=== PATIENT | male | born 1950 | race Caucasian/White ===

== ENCOUNTER → 2022-12-27 14:01 | Outpatient (CLI) | payer SELFPAY | PROVIDERS: PCP Family Medicine; Visit Provider Family Medicine | DX: R35.0 Frequency of micturition (principal) | CPT/HCPCS: 87077; 87086; 87147; 87186 ==

== ENCOUNTER → 2023-01-01 09:41 | Outpatient (CLI) | payer SELFPAY | PROVIDERS: PCP Family Medicine; Visit Provider Family Medicine | DX: R31.0 Gross hematuria (principal); R39.89 Other symptoms and signs involving the genitourinary system | CPT/HCPCS: 87077; 87086; 87147; 87186 ==

== ENCOUNTER → 2023-01-23 12:14 | Outpatient (CLI) | payer MEDICARE, SELFPAY ==
--- NOTE | 2023-01-23 12:16 | DI.CT.S_ITS ---
PROCEDURE: CT ABDOMEN PELVIS W CON INDICATIONS: abdominal mass, GFR 52 (CR 1.44), rectal mass TECHNIQUE: After the administration of oral and intravenous contrast, axial sections were acquired from the lung bases to the pubic symphysis. Coronal and sagittal reformats were performed. For radiation dose reduction, the following was used: automated exposure control, adjustment of mA and/or kV according to patient size. COMPARISON:None. FINDINGS: Image quality: Excellent. Lung bases: 6 mm solid nodule, lateral right lower lobe (5/8). Heart: No significant findings. ABDOMEN: Liver: Unremarkable. Gallbladder: Unremarkable. Biliary ducts: Unremarkable. Pancreas: Unremarkable. Spleen: Unremarkable. Adrenal Glands: Unremarkable. Kidneys and Ureters: Moderate bilateral hydronephrosis. Delayed right-sided nephrogram. Moderate hydroureters. Stomach and Bowel: Stomach, small bowel loops, and colon are unremarkable. Peritoneum: No abnormal intraperitoneal fluid. No free air. Ventral Wall: No hernia. Abdominal Nodes: No retroperitoneal or mesenteric adenopathy by size criteria. Vessels: Aorta and inferior vena cava are normal in size. PELVIS: Pelvic Organs: Fungating bladder mass measuring 3.1 x 9.3 cm. Diffuse, irregular bladder wall thickening. Posterior bladder wall bulging, highly suspicious for invasion beyond the bladder wall (2/58). Bladder: Unremarkable. Pelvic Nodes: No enlarged lymph nodes. Miscellaneous: No inguinal hernias are seen. Bones: Unremarkable. No aggressive osseous abnormality. IMPRESSION: Fungating bladder mass measuring 3.1 x 9.3 cm. Diffuse, irregular bladder wall thickening. Posterior bladder wall bulging, highly suspicious for invasion beyond the bladder wall (2/58). No pelvic adenopathy by size criteria. Moderate bilateral hydronephroureter. 6 mm solid nodule in the right lower lobe, indeterminate in the setting of presumed malignancy. Dictated by: Parag Haile M.D. on 01/23/2023 at 14:58 Approved by: Parag Haile M.D. on 01/23/2023 at 15:03
[2023-01-23 12:51] LABS: Estimated Glomerular Filt Rate 41 mL/min (>60)
== END ==
PROVIDERS: Radiology Diagnostic Radiology; PCP Family Medicine; Referring Provider Family Medicine; Visit Provider Family Medicine
DX: N32.9 Bladder disorder, unspecified (principal); R91.1 Solitary pulmonary nodule; K62.89 Other specified diseases of anus and rectum; N13.30 Unspecified hydronephrosis; N39.0 Urinary tract infection, site not specified; R19.09 Other intra-abdominal and pelvic swelling, mass and lump; R21 Rash and other nonspecific skin eruption; R31.9 Hematuria, unspecified; D64.9 Anemia, unspecified
CPT/HCPCS: 36415; 74177; 82565; Q9967

== ENCOUNTER → 2023-02-20 13:28 | Outpatient (CLI) | payer MEDICARE, SELFPAY ==
[2023-02-20 14:15] LABS: Add Manual Diff / Slide Review NO; Basophils Absolute Auto 100 /uL (0-100); Basophils Percent Auto 0.8 % (0-2); Eosinophils Absolute Auto 100 /uL (0-450); Eosinophils Percent Auto 1.5 % (2-4); Hematocrit 23.8 % (41-53); Hemoglobin 7.4 g/dL (13.5-17.5); Lymphocytes Absolute Auto 1400 /uL (1100-4500); Lymphocytes Percent Auto 16.4 % (25-40); Mean Corpuscular HGB Conc 31.2 % (30-36); Mean Corpuscular Hemoglobin 19.9 PG (26-34); Mean Corpuscular Volume 63.8 fL (80-100); Monocytes Absolute Auto 800 /uL (0-900); Monocytes Percent Auto 9.7 % (3-14); Neutrophils Absolute Auto 6000 /uL (1500-7000); Neutrophils Percent Auto 71.6 % (50-75); Platelet Count 447 X10^3/uL (150-400); Red Blood Cell Count 3.73 X10^6/uL (4.5-5.9); Red Cell Distribution Width 23.7 % (11.6-14.8); White Blood Cell Count 8.3 X10^3/uL (4.5-11.0)
[2023-02-20 14:31] LABS: Alanine Aminotransferase 15 IU/L (<50); Albumin 3.7 g/dL (3.5-5.0); Alkaline Phosphatase 67 U/L (38-126); Aspartate Aminotransferase 19 IU/L (17-59); BUN Creatinine Ratio 21.2 (6-22); Bilirubin Total 0.2 mg/dL (0.2-1.3); Blood Urea Nitrogen 32 mg/dL (9-20); Calcium 8.6 mg/dL (8.4-10.2); Carbon Dioxide 25 mmol/L (22-32); Chloride 104 mmol/L (98-107); Cholesterol 203 mg/dL (140-199); Estimated Glomerular Filt Rate 49 mL/min (>60); Globulin 3.6 g/dL (1.7-4.1); Glucose 75 mg/dL (80-110); HEMOLYSIS < 15 (0-50); Potassium 5.2 mmol/L (3.4-5.1); Sodium 137 mmol/L (137-145); Total Protein 7.3 g/dL (6.3-8.2)
[2023-02-20 14:54] LABS: Microcytosis 2+
[2023-02-20 14:55] LABS: Hypochromasia 1+
[2023-02-20 15:01] LABS: TSH w/ Reflex to FT4 3.31 uIU/mL (0.47-4.68)
== END ==
PROVIDERS: PCP Family Medicine; Referring Provider Family Medicine; Visit Provider Family Medicine
DX: R79.89 Other specified abnormal findings of blood chemistry; E87.1 Hypo-osmolality and hyponatremia; R63.4 Abnormal weight loss; R93.89 Abnormal findings on diagnostic imaging of other specified body structures; D75.839 Thrombocytosis, unspecified; R19.00 Intra-abdominal and pelvic swelling, mass and lump, unspecified site; R31.9 Hematuria, unspecified; R94.4 Abnormal results of kidney function studies
CPT/HCPCS: 36415; 80053; 82465; 84443; 85025

== ENCOUNTER → 2023-03-12 14:01 | Outpatient (CLI) | payer MEDICARE, SELFPAY | PROVIDERS: PCP Family Medicine; Visit Provider Specialist | DX: N39.0 Urinary tract infection, site not specified (principal); D49.4 Neoplasm of unspecified behavior of bladder; R39.9 Unspecified symptoms and signs involving the genitourinary system; Z87.440 Personal history of urinary (tract) infections | CPT/HCPCS: 51798; 81002; 87077; 87086; 87147; 87186; 99215 ==

== ENCOUNTER → 2023-08-14 10:47 | Outpatient (CLI) | payer MEDICARE, SELFPAY ==
[2023-08-14 20:06] LABS: Bilirubin Urine UA 2+ (NEGATIVE); Glucose Urine UA NEGATIVE (Negative); Ketones Urine UA NEGATIVE (NEGATIVE); Leukocyte Esterase Urine UA 2+ (NEGATIVE); Nitrite Urine UA POSITIVE (Negative); Occult Blood Urine UA 3+ (Negative); Protein Urine UA 3+ (Negative); Specific Gravity Urine UA 1.015 (1.000-1.035)
[2023-08-14 20:14] LABS: Appearance Urine UA CLOUDY; Color Urine UA Red
[2023-08-14 20:18] LABS: Bacteria Urine Moderate (10-30); Culture Indicated Urine Specimen Cultured; Ictotest Urine Negative (Negative); RBC Urine 10-30/HPF (0-5/HPF); Squamous Epithelial Cell Urine 0-1 /HPF (0-5/HPF); WBC Urine 10-30/HPF (0-5/HPF)
== END ==
PROVIDERS: PCP Family Medicine; Visit Provider Naturopath
DX: N39.0 Urinary tract infection, site not specified (principal)
CPT/HCPCS: 81001; 87077; 87086; 87147; 87186

== ENCOUNTER → 2023-09-04 08:27 | Outpatient (CLI) | payer MEDICARE, SELFPAY ==
[2023-09-04 19:26] LABS: Appearance Urine UA TURBID; Bilirubin Urine UA NEGATIVE (NEGATIVE); Color Urine UA RED; Glucose Urine UA NEGATIVE (Negative); Ketones Urine UA NEGATIVE (NEGATIVE); Leukocyte Esterase Urine UA 3+ (NEGATIVE); Nitrite Urine UA POSITIVE (Negative); Occult Blood Urine UA 3+ (Negative); Protein Urine UA 2+ (Negative); Urobilinogen Urine UA 0.2 E.U./dL (0.2); pH Urine UA 6.5 (4.5-8.0)
[2023-09-04 20:13] LABS: Bacteria Urine Many (>30); Culture Indicated Urine Specimen Cultured; RBC Urine >100/HPF (0-5/HPF); Squamous Epithelial Cell Urine 0-1 /HPF (0-5/HPF); WBC Urine 30-100/HPF (0-5/HPF)
== END ==
PROVIDERS: PCP Family Medicine; Visit Provider Urology
DX: D49.4 Neoplasm of unspecified behavior of bladder (principal)
CPT/HCPCS: 81001; 87086

== ENCOUNTER → 2023-10-01 14:54 | Outpatient (CLI) | payer MEDICARE, SELFPAY | PROVIDERS: PCP Family Medicine; Visit Provider Physician Assistant | DX: R31.9 Hematuria, unspecified (principal) | CPT/HCPCS: 87077; 87086; 87147 ==

== ENCOUNTER 2023-10-01 17:21 | Emergency (ER) | payer MEDICARE, SELFPAY ==
[2023-10-01] VITALS (37 sets, daily range): BP systolic 119–161; BP diastolic 62–92; PULSE 63–92; RESP 13–22; TEMP 36.4–37; O2SAT 93–100; BMI 20.3
[2023-10-01 18:02] LABS: Bilirubin Urine UA NEGATIVE (NEGATIVE); Glucose Urine UA NEGATIVE (Negative); Ketones Urine UA NEGATIVE (NEGATIVE); Leukocyte Esterase Urine UA 2+ (NEGATIVE); Nitrite Urine UA POSITIVE (Negative); Occult Blood Urine UA 3+ (Negative); Protein Urine UA 3+ (Negative); pH Urine UA 6.5 (4.5-8.0)
[2023-10-01 18:02] LABS: INR 1.2 (0.9-1.3); Prothrombin Time 13.8 SECONDS (9.4-12.5)
[2023-10-01 18:05] LABS: Add Manual Diff / Slide Review NO; Basophils Absolute Auto 100 /uL (0-100); Basophils Percent Auto 0.7 % (0-2); Eosinophils Absolute Auto 200 /uL (0-450); Eosinophils Percent Auto 2.9 % (2-4); Lymphocytes Absolute Auto 1200 /uL (1100-4500); Lymphocytes Percent Auto 15.9 % (25-40); Mean Corpuscular HGB Conc 29.9 % (30-36); Mean Corpuscular Hemoglobin 19.4 PG (26-34); Mean Corpuscular Volume 64.9 fL (80-100); Monocytes Absolute Auto 600 /uL (0-900); Monocytes Percent Auto 8.2 % (3-14); Neutrophils Absolute Auto 5400 /uL (1500-7000); Neutrophils Percent Auto 72.3 % (50-75); PTT Partial Thromboplastin Tim 27 SECONDS (25.1-36.5); Platelet Count 556 X10^3/uL (150-400); Red Blood Cell Count 2.52 X10^6/uL (4.5-5.9); Red Cell Distribution Width 24.6 % (11.6-14.8); White Blood Cell Count 7.5 X10^3/uL (4.5-11.0)
[2023-10-01 18:06] LABS: Alanine Aminotransferase 8 IU/L (<50); Albumin 3.8 g/dL (3.5-5.0); Alkaline Phosphatase 69 U/L (38-126); Aspartate Aminotransferase 13 IU/L (17-59); BUN Creatinine Ratio 13.6 (6-22); Bilirubin Total 0.3 mg/dL (0.2-1.3); Blood Urea Nitrogen 36 mg/dL (9-20); Calcium 9.1 mg/dL (8.4-10.2); Carbon Dioxide 22 mmol/L (22-32); Chloride 104 mmol/L (98-107); Estimated Glomerular Filt Rate 25 mL/min (>60); Globulin 3.8 g/dL (1.7-4.1); Glucose 94 mg/dL (80-110); HEMOLYSIS < 15 (0-50); Potassium 4.7 mmol/L (3.4-5.1); Sodium 134 mmol/L (137-145); Total Protein 7.6 g/dL (6.3-8.2)
[2023-10-01 18:07] LABS: Hematocrit 16.3 % (41-53); Hemoglobin 4.9 g/dL (13.5-17.5)
[2023-10-01 18:08] LABS: Appearance Urine UA Turbid; Bacteria Urine Moderate (10-30); Color Urine UA Red; Culture Indicated Urine Specimen Cultured; RBC Urine >100/HPF (0-5/HPF); Squamous Epithelial Cell Urine 1-5 /HPF (0-5/HPF); WBC Urine 30-100/HPF (0-5/HPF)
[2023-10-01 18:21] LABS: Anisocytosis 3+; Ovalocytes 1+
[2023-10-01 18:22] LABS: Schistocytes 1+
[2023-10-01 18:23] LABS: Microcytosis 2+
--- NOTE | 2023-10-01 18:24 | ED_ITS ---
HPI - Recheck/Abnormal Lab/Rx <DO Inez Arnold Last Filed: 10/02/23 22:56> General Chief Complaint: Recheck/Abnormal Lab/Rx Stated Complaint: hematuria low H/H Time Seen by Provider: 10/01/23 17:44 Source: patient and EMS Mode of arrival: EMS History of Present Illness HPI narrative: Patient is a 73-year-old male. Was sent from his primary doctor's office for evaluation of hematuria and anemia. Patient states that really for the past several months he has had hematuria however it does seem to have worsened over the past couple days to the point where he has been passing clots. No blood in his stool. Earlier this year he was seen by Urology secondary to issues with hematuria and there was also concern about a bladder neoplasm. He followed up with Urology of the [facility] where they had discussions about surgery and chemotherapy. Patient states he did not want to go through with this so he never followed up with the urologist. He is also not followed up with Urology at this facility. He states that he did research on his own and thought that try to shrink the mass would be more appropriate. He saw another urologist at the [facility]. I am unsure as to what exactly came from this discussion with the specialists that this facility. He states that he was going to pursue ?metabolic? treatment to try to help shrink the mass. He is not having any chest pain but is very fatigued when he stands up and walks around. Not having any abdominal pain. He feels like he is emptying his bladder when he goes to the bathroom. Has never had a blood transfusion in the past. Takes no medications. No diagnosed medical problems. Related Data Previous Rx's Medication Instructions Recorded tamsulosin 0.4 mg capsule 0.4 mg PO BEDTIME #90 caps 03/12/23 nitrofurantoin macrocrystal 100 mg 100 mg PO BID 7 days #14 caps 10/01/23 capsule Allergies Allergy/AdvReac Type Severity Reaction Status Date / Time No Known Drug Allergies Allergy Verified 10/01/23 14:28 Review of Systems <DO Inez Arnold Last Filed: 10/02/23 22:56> Review of Systems ROS Unobtainable: All systems reviewed & are unremarkable except as noted in HPI and below Patient History <DO Inez Arnold Last Filed: 10/02/23 22:56> Medical History (Updated 10/02/23 @ 14:53 by Jerome Woodruff MD) Transfusion of blood during current hospitalisation Benign prostatic hyperplasia Bilateral hydronephrosis Gross hematuria History of UTI Lower urinary tract symptoms (LUTS) Bladder neoplasm Plantar warts Shoulder pain Measles Chicken pox Surgical History Anesthesia History of tonsillectomy Family History Father Cancer Diabetes mellitus Mother Cancer Hypertension Social History marital status: Smoking Status: Former smoker Type(s) of exercise: other frequency: 1-2 times per week Smoking Status: Former smoker alcohol intake frequency: 0-2 drinks per day Alcohol type: beer Substance Use Type: does not use Exam <Suhail Peters DO - Last Filed: 10/02/23 22:56> Initial Vital Signs Initial Vital Signs: Vital Signs Pulse Rate 73 10/01/23 17:27 Respiratory Rate 13 10/01/23 17:27 Const General: cooperative and comfortable HENMT Head: normal to inspection and normocephalic Eyes Other: Pale conjunctiva Resp Effort & Inspection: normal respiratory effort Cardio Rate: regular rate GI Inspection: normal to inspection Skin General: no rashes or lesions noted Other: Pale skin Neuro General: patient alert, patient awake, patient oriented x3 and moves all extremities <Mayelin Posey MD - Last Filed: 10/02/23 14:26> Initial Vital Signs Initial Vital Signs: Vital Signs Pulse Rate 73 10/01/23 17:27 Respiratory Rate 13 10/01/23 17:27 Course <Suhail Peters DO - Last Filed: 10/02/23 22:56> Orders Ordered: Discontinued Medications Acetaminophen (Acetaminophen 325 Mg Tablet) 650 mg PO Q6H PRN PRN Reason: Fever/Mild Pain (1-3) Tranexamic Acid 1,000 mg/ (Sodium Chloride) 100 mls @ 200 mls/hr IV NOW ONE Stop: 10/02/23 12:57 Last Infusion: 10/02/23 14:34 Dose: Infused Documented By: Admin: 10/02/23 13:19 Dose: 200 mls/hr Documented By: LINDA Ceftriaxone Sodium 1,000 mg/ (Sodium Chloride) 100 mls @ 200 mls/hr IV Q24H [facility] Stop: 10/08/23 12:46 Last Admin: 10/02/23 14:35 Dose: Not Given Documented By: LINDA Ceftriaxone Sodium 1,000 mg/ (Sodium Chloride) 100 mls @ 200 mls/hr IV Q24H [facility] Stop: 10/08/23 13:59 Last Infusion: 10/02/23 14:34 Dose: Infused Documented By: Admin: 10/02/23 13:24 Dose: 200 mls/hr Documented By: LINDA Lidocaine HCl (Lidocaine 2% (Glydo) 6 Ml Gel) 6 ml TOP NOW ONE Stop: 10/02/23 13:05 Last Admin: 10/02/23 13:19 Dose: 6 ml Documented By: LINDA Naloxone HCl (Naloxone 0.4 Mg/Ml Vial) 0.2 mg IV Q2MIN PRN PRN Reason: Opiate Reversal Ondansetron HCl (Ondansetron 4 Mg/2 Ml Inj) 4 mg IV NOW PRN PRN Reason: Nausea And Vomiting Ondansetron HCl (Ondansetron 4 Mg/2 Ml Inj) 4 mg IV Q4HR PRN PRN Reason: [place] Pantoprazole Sodium (Pantoprazole 40 Mg Vial) 80 mg IV NOW ONE Stop: 10/01/23 17:36 Last Admin: 10/01/23 17:45 Dose: Not Given Documented By: DAVID Tamsulosin HCl (Tamsulosin 0.4 Mg Capsule) 0.4 mg PO NOW ONE Stop: 10/02/23 12:29 Last Admin: 10/02/23 13:19 Dose: 0.4 mg Documented By: LINDA Vital Signs Vital signs: Vital Signs - 8 hr 10/02/23 06:30 10/02/23 06:45 10/02/23 07:00 Pulse Rate 71 72 75 Respiratory Rate 20 21 21 Blood Pressure Pulse Oximetry 97 97 100 10/02/23 07:15 10/02/23 07:30 10/02/23 07:45 Pulse Rate 71 86 76 Respiratory Rate 21 20 27 H Blood Pressure Pulse Oximetry 98 98 94 10/02/23 08:00 10/02/23 08:00 10/02/23 08:15 Pulse Rate 78 71 Respiratory Rate 19 19 Blood Pressure 156/72 H Pulse Oximetry 97 96 10/02/23 08:30 10/02/23 08:45 10/02/23 09:00 Pulse Rate 85 85 80 Respiratory Rate 23 22 19 Blood Pressure Pulse Oximetry 96 10/02/23 09:15 10/02/23 09:30 10/02/23 09:45 Pulse Rate 89 79 81 Respiratory Rate 21 21 16 Blood Pressure Pulse Oximetry 98 97 98 10/02/23 10:00 10/02/23 10:01 10/02/23 10:01 Pulse Rate 77 77 Respiratory Rate 21 25 H Blood Pressure 129/70 Pulse Oximetry 97 97 10/02/23 10:15 10/02/23 10:35 10/02/23 10:45 Pulse Rate 73 86 70 Respiratory Rate 21 20 21 Blood Pressure Pulse Oximetry 97 96 96 10/02/23 11:00 10/02/23 11:15 10/02/23 11:30 Pulse Rate 68 67 66 Respiratory Rate 22 20 20 Blood Pressure Pulse Oximetry 97 96 97 10/02/23 11:45 10/02/23 12:00 10/02/23 12:00 Pulse Rate 67 74 Respiratory Rate 22 18 Blood Pressure 137/82 Pulse Oximetry 97 <Mayelin Posey MD - Last Filed: 10/02/23 14:26> Orders Ordered: Discontinued Medications Acetaminophen (Acetaminophen 325 Mg Tablet) 650 mg PO Q6H PRN PRN Reason: Fever/Mild Pain (1-3) Tranexamic Acid 1,000 mg/ (Sodium Chloride) 100 mls @ 200 mls/hr IV NOW ONE Stop: 10/02/23 12:57 Last Infusion: 10/02/23 14:34 Dose: Infused Documented By: Admin: 10/02/23 13:19 Dose: 200 mls/hr Documented By: LINDA Ceftriaxone Sodium 1,000 mg/ (Sodium Chloride) 100 mls @ 200 mls/hr IV Q24H [facility] Stop: 10/08/23 12:46 Last Admin: 10/02/23 14:35 Dose: Not Given Documented By: LINDA Ceftriaxone Sodium 1,000 mg/ (Sodium Chloride) 100 mls @ 200 mls/hr IV Q24H [facility] Stop: 10/08/23 13:59 Last Infusion: 10/02/23 14:34 Dose: Infused Documented By: Admin: 10/02/23 13:24 Dose: 200 mls/hr Documented By: LINDA Lidocaine HCl (Lidocaine 2% (Glydo) 6 Ml Gel) 6 ml TOP NOW ONE Stop: 10/02/23 13:05 Last Admin: 10/02/23 13:19 Dose: 6 ml Documented By: LINDA Naloxone HCl (Naloxone 0.4 Mg/Ml Vial) 0.2 mg IV Q2MIN PRN PRN Reason: Opiate Reversal Ondansetron HCl (Ondansetron 4 Mg/2 Ml Inj) 4 mg IV NOW PRN PRN Reason: Nausea And Vomiting Ondansetron HCl (Ondansetron 4 Mg/2 Ml Inj) 4 mg IV Q4HR PRN PRN Reason: [place] Pantoprazole Sodium (Pantoprazole 40 Mg Vial) 80 mg IV NOW ONE Stop: 10/01/23 17:36 Last Admin: 10/01/23 17:45 Dose: Not Given Documented By: DAVID Tamsulosin HCl (Tamsulosin 0.4 Mg Capsule) 0.4 mg PO NOW ONE Stop: 10/02/23 12:29 Last Admin: 10/02/23 13:19 Dose: 0.4 mg Documented By: LINDA Vital Signs Vital signs: Vital Signs - 8 hr 10/02/23 06:30 10/02/23 06:45 10/02/23 07:00 Pulse Rate 71 72 75 Respiratory Rate 20 21 21 Blood Pressure Pulse Oximetry 97 97 100 10/02/23 07:15 10/02/23 07:30 10/02/23 07:45 Pulse Rate 71 86 76 Respiratory Rate 21 20 27 H Blood Pressure Pulse Oximetry 98 98 94 10/02/23 08:00 10/02/23 08:00 10/02/23 08:15 Pulse Rate 78 71 Respiratory Rate 19 19 Blood Pressure 156/72 H Pulse Oximetry 97 96 10/02/23 08:30 10/02/23 08:45 10/02/23 09:00 Pulse Rate 85 85 80 Respiratory Rate 23 22 19 Blood Pressure Pulse Oximetry 96 10/02/23 09:15 10/02/23 09:30 10/02/23 09:45 Pulse Rate 89 79 81 Respiratory Rate 21 21 16 Blood Pressure Pulse Oximetry 98 97 98 10/02/23 10:00 10/02/23 10:01 10/02/23 10:01 Pulse Rate 77 77 Respiratory Rate 21 25 H Blood Pressure 129/70 Pulse Oximetry 97 97 10/02/23 10:15 10/02/23 10:35 10/02/23 10:45 Pulse Rate 73 86 70 Respiratory Rate 21 20 21 Blood Pressure Pulse Oximetry 97 96 96 10/02/23 11:00 10/02/23 11:15 10/02/23 11:30 Pulse Rate 68 67 66 Respiratory Rate 22 20 20 Blood Pressure Pulse Oximetry 97 96 97 10/02/23 11:45 10/02/23 12:00 10/02/23 12:00 Pulse Rate 67 74 Respiratory Rate 22 18 Blood Pressure 137/82 Pulse Oximetry 97 MDM - Recheck/Abnormal Lab/Rx <Suhail Peters DO - Last Filed: 10/02/23 22:56> Medical Records Attestation: I reviewed the patient's medical records. Lab Data Attestation: I reviewed the patient's lab results. 10/02/23 06:45 10/01/23 17:30 Labs: Lab Results 10/01/23 10/01/23 10/01/23 Range/Units 17:30 17:40 19:23 WBC 7.5 (4.5-11.0) X10^3/uL RBC 2.52 L (4.5-5.9) X10^6/uL Hgb 4.9 L* (13.5-17.5) g/dL Hct 16.3 L* (41-53) % MCV 64.9 L (80-100) fL MCH 19.4 L (26-34) PG MCHC 29.9 L (30-36) % RDW 24.6 H (11.6-14.8) % Plt Count 556 H (150-400) X10^3/uL Neut % (Auto) 72.3 (50-75) % Lymph % (Auto) 15.9 L (25-40) % [place] % (Auto) 8.2 (3-14) % Eos % (Auto) 2.9 (2-4) % Baso % (Auto) 0.7 (0-2) % Neut # (Auto) 5400 (6567-0204) /uL Lymph # (Auto) 1200 (3219-0662) /uL [place] # (Auto) 600 (0-900) /uL Eos # (Auto) 200 (0-450) /uL Baso # (Auto) 100 (0-100) /uL RBC Morphology See below Anisocytosis 3+ H Microcytosis 2+ H Ovalocytes 1+ H Schistocytes 1+ H PT 13.8 H (9.4-12.5) SECONDS INR 1.2 (0.9-1.3) APTT 27 (25.1-36.5) SECONDS Sodium 134 L (137-145) mmol/L Potassium 4.7 (3.4-5.1) mmol/L Chloride 104 (98-107) mmol/L Carbon Dioxide 22 (22-32) mmol/L BUN 36 H (9-20) mg/dL Creatinine 2.64 H (0.66-1.25) mg/dL Estimated GFR 25 L (>60) mL/min BUN/Creatinine Ratio 13.6 (6-22) Glucose 94 (80-110) mg/dL Calcium 9.1 (8.4-10.2) mg/dL Total Bilirubin 0.3 (0.2-1.3) mg/dL AST 13 L (17-59) IU/L ALT 8 (<50) IU/L Alkaline Phosphatase 69 (38-126) U/L Total Protein 7.6 (6.3-8.2) g/dL Albumin 3.8 (3.5-5.0) g/dL Globulin 3.8 (1.7-4.1) g/dL Albumin/Globulin Ratio 1.0 (1.0-2.8) Urine Color Red Urine Appearance Turbid Urine pH 6.5 (4.5-8.0) Ur Specific [place] 1.020 (1.000-1.035) Urine Protein 3+ H (Negative) Urine Glucose (UA) Negative (Negative) g/dL Urine Ketones Negative (NEGATIVE) Urine Occult Blood 3+ H (Negative) Urine Nitrate Positive H (Negative) Urine Bilirubin Negative (NEGATIVE) Urine Urobilinogen 1.0 (0.2) E.U./dL Ur Leukocyte Esterase 2+ H (NEGATIVE) Urine RBC >100/hpf H (0-5/HPF) Urine WBC 30-100/hpf H (0-5/HPF) Ur Squamous Epith Cells 1-5 /hpf (0-5/HPF) Urine Bacteria Moderate (10-30) H (None) Ur Culture Indicated? Specimen cultured Micro UA Comment Ur Random Sodium 69 (30-90) mmol/L Urine Creatinine 68.7 mg/dL SARS-CoV-2 (PCR) (Negative) Blood Type A Positive Antibody Screen Negative Crossmatch See Detail 10/01/23 10/01/23 10/02/23 Range/Units 22:03 23:45 02:40 WBC (4.5-11.0) X10^3/uL RBC (4.5-5.9) X10^6/uL Hgb 6.7 L* 7.9 L (13.5-17.5) g/dL Hct 21.1 L 24.7 L (41-53) % MCV (80-100) fL MCH (26-34) PG MCHC (30-36) % RDW (11.6-14.8) % Plt Count (150-400) X10^3/uL Neut % (Auto) (50-75) % Lymph % (Auto) (25-40) % [place] % (Auto) (3-14) % Eos % (Auto) (2-4) % Baso % (Auto) (0-2) % Neut # (Auto) (8884-5677) /uL Lymph # (Auto) (8314-1409) /uL [place] # (Auto) (0-900) /uL Eos # (Auto) (0-450) /uL Baso # (Auto) (0-100) /uL RBC Morphology Anisocytosis Microcytosis Ovalocytes Schistocytes PT (9.4-12.5) SECONDS INR (0.9-1.3) APTT (25.1-36.5) SECONDS Sodium (137-145) mmol/L Potassium (3.4-5.1) mmol/L Chloride (98-107) mmol/L Carbon Dioxide (22-32) mmol/L BUN (9-20) mg/dL Creatinine (0.66-1.25) mg/dL Estimated GFR (>60) mL/min BUN/Creatinine Ratio (6-22) Glucose (80-110) mg/dL Calcium (8.4-10.2) mg/dL Total Bilirubin (0.2-1.3) mg/dL AST (17-59) IU/L ALT (<50) IU/L Alkaline Phosphatase (38-126) U/L Total Protein (6.3-8.2) g/dL Albumin (3.5-5.0) g/dL Globulin (1.7-4.1) g/dL Albumin/Globulin Ratio (1.0-2.8) Urine Color Urine Appearance Urine pH (4.5-8.0) Ur Specific [place] (1.000-1.035) Urine Protein (Negative) Urine Glucose (UA) (Negative) g/dL Urine Ketones (NEGATIVE) Urine Occult Blood (Negative) Urine Nitrate (Negative) Urine Bilirubin (NEGATIVE) Urine Urobilinogen (0.2) E.U./dL Ur Leukocyte Esterase (NEGATIVE) Urine RBC (0-5/HPF) Urine WBC (0-5/HPF) Ur Squamous Epith Cells (0-5/HPF) Urine Bacteria (None) Ur Culture Indicated? Micro UA Comment Ur Random Sodium (30-90) mmol/L Urine Creatinine mg/dL SARS-CoV-2 (PCR) Negative (Negative) Blood Type Antibody Screen Crossmatch 10/02/23 Range/Units 06:45 WBC (4.5-11.0) X10^3/uL RBC (4.5-5.9) X10^6/uL Hgb 7.7 L (13.5-17.5) g/dL Hct 23.8 L (41-53) % MCV (80-100) fL MCH (26-34) PG MCHC (30-36) % RDW (11.6-14.8) % Plt Count (150-400) X10^3/uL Neut % (Auto) (50-75) % Lymph % (Auto) (25-40) % [place] % (Auto) (3-14) % Eos % (Auto) (2-4) % Baso % (Auto) (0-2) % Neut # (Auto) (2635-0841) /uL Lymph # (Auto) (8046-8096) /uL [place] # (Auto) (0-900) /uL Eos # (Auto) (0-450) /uL Baso # (Auto) (0-100) /uL RBC Morphology Anisocytosis Microcytosis Ovalocytes Schistocytes PT (9.4-12.5) SECONDS INR (0.9-1.3) APTT (25.1-36.5) SECONDS Sodium (137-145) mmol/L Potassium (3.4-5.1) mmol/L Chloride (98-107) mmol/L Carbon Dioxide (22-32) mmol/L BUN (9-20) mg/dL Creatinine (0.66-1.25) mg/dL Estimated GFR (>60) mL/min BUN/Creatinine Ratio (6-22) Glucose (80-110) mg/dL Calcium (8.4-10.2) mg/dL Total Bilirubin (0.2-1.3) mg/dL AST (17-59) IU/L ALT (<50) IU/L Alkaline Phosphatase (38-126) U/L Total Protein (6.3-8.2) g/dL Albumin (3.5-5.0) g/dL Globulin (1.7-4.1) g/dL Albumin/Globulin Ratio (1.0-2.8) Urine Color Urine Appearance Urine pH (4.5-8.0) Ur Specific [place] (1.000-1.035) Urine Protein (Negative) Urine Glucose (UA) (Negative) g/dL Urine Ketones (NEGATIVE) Urine Occult Blood (Negative) Urine Nitrate (Negative) Urine Bilirubin (NEGATIVE) Urine Urobilinogen (0.2) E.U./dL Ur Leukocyte Esterase (NEGATIVE) Urine RBC (0-5/HPF) Urine WBC (0-5/HPF) Ur Squamous Epith Cells (0-5/HPF) Urine Bacteria (None) Ur Culture Indicated? Micro UA Comment Ur Random Sodium (30-90) mmol/L Urine Creatinine mg/dL SARS-CoV-2 (PCR) (Negative) Blood Type Antibody Screen Crossmatch Imaging Data CT scan - abdomen/pelvis: Radiologist's Impression: PROCEDURE: CT ABDOMEN PELVIS WO CON INDICATIONS: Hematuria, known bladder mass, TECHNIQUE: Noncontrast 5 mm thick sections acquired from the diaphragms to the symphysis. 5 mm coronal and sagittal reformats were then performed. For radiation dose reduction, the following was used: automated exposure control, adjustment of mA and/or kV according to patient size. COMPARISON: [facility], CT, CT ABDOMEN PELVIS W CON, 01/23/2023, 13:58. FINDINGS: Image quality: Diagnostic ABDOMEN: Lung bases: Lung bases are clear. Heart size is normal. Solid organs: Liver: Liver is normal in size. Gallbladder: Unremarkable. Pancreas: Pancreas is normal in contours. Spleen: Spleen is normal in size. Adrenal Glands: Stable appearance of the adrenal glands. Kidneys/Ureters: Moderate bilateral hydronephrosis stable to slightly more prominent compared to the prior study. There is moderate right hydroureter. Tiny punctate left renal stone identified. Persistent left hydroureter. A few punctate densities noted in the distal left ureter likely representing ureteral stones. Peritoneum and bowel: Unenhanced bowel loops demonstrate normal wall thickness and caliber. No free fluid or air. No evidence for obstruction. Moderate fecal material seen in the ascending colon and transverse colon. Nodes and vessels: No retroperitoneal or mesenteric adenopathy by size criteria. Aorta and inferior vena cava are normal in caliber. Scattered atherosclerosis. Miscellaneous: No ventral hernias. PELVIS: Genitourinary: Redemonstration of large, heterogeneous urinary bladder mass with associated diffusely, irregular bladder wall thickening. Largest dimension measures approximately 9.5 cm in AP dimension. This is similar compared to the prior study accounting for differences in technique. Small punctate densities within the urinary bladder may represent small stones. No significant perivesicular stranding seen. Miscellaneous: No inguinal hernias or adenopathy. Bones: No suspicious bony lesions. No acute vertebral body compression fractures. Multilevel spondylosis. IMPRESSION: 1. Redemonstration of large, heterogeneous urinary bladder wall mass with associated diffusely irregular urinary bladder wall thickening. There is stable to slight interval worsening moderate bilateral hydronephrosis. 2. Tiny punctate left nephrolith with a few smaller punctate left ureteral stones. Suspected small urinary bladder stones. 3. Moderate amount of fecal material noted within the ascending colon and transverse colon. No evidence for small bowel obstruction. Dictated by: Stiven Cr M.D. on 10/01/2023 at 20:00 Approved by: Stiven Cr M.D. on 10/01/2023 at 20:11 ECG Data Attestation: I personally reviewed and interpreted this ECG as follows: Interpretation: Sinus rhythm Ventricular rate is 68 Normal axis Normal QRS Normal QTC Nonspecific ST T wave changes MDM Narrative Medical decision making narrative: Patient has had persistent hematuria for the past several months. He is a known bladder mass. Has been seen by Urology the [facility]. Has decided not to pursue surgical intervention because he wanted to explore other opportunities to try to shrink the mass before any surgery. Hematuria worsened over the past week or so. Has not been tachycardic nor hypotensive however was pale. Was significantly anemic. Source of bleeding was from the urine. He is emptying his bladder when he urinates. Also has acute kidney injury. FENa is 2% which is indicative of a intrinsic renal pathology. Discuss the risks and benefits of a blood transfusion and the patient consented. Had good response to 2 units so a 3rd unit was administered. Patient has no signs of fluid overload. I did discuss the case with Dr. Thomas urologist on-call at our facility who evaluated the patient earlier this year. Dr. Thomas states that there is minimal that we can offer him here at this facility and that he would need transferred to larger facility that has a multidisciplinary approach to his most likely diagnosis of bladder cancer. Had a long discussion with the patient regarding his goals of care. Patient states that he is open for a transfer to discuss treatment options. Discuss the case with urology at the [facility] who accepts the patient for transfer. Unfortunately no bed availability overnight. Patient is aware this. We will continue to monitor until disposition can be met. Care turned over to Dr. Posey to continue to observe until disposition can be met. <Mayelin Posey MD - Last Filed: 10/02/23 14:26> Lab Data Labs: Lab Results 10/01/23 10/01/23 10/01/23 Range/Units 17:30 17:40 19:23 WBC 7.5 (4.5-11.0) X10^3/uL RBC 2.52 L (4.5-5.9) X10^6/uL Hgb 4.9 L* (13.5-17.5) g/dL Hct 16.3 L* (41-53) % MCV 64.9 L (80-100) fL MCH 19.4 L (26-34) PG MCHC 29.9 L (30-36) % RDW 24.6 H (11.6-14.8) % Plt Count 556 H (150-400) X10^3/uL Neut % (Auto) 72.3 (50-75) % Lymph % (Auto) 15.9 L (25-40) % [place] % (Auto) 8.2 (3-14) % Eos % (Auto) 2.9 (2-4) % Baso % (Auto) 0.7 (0-2) % Neut # (Auto) 5400 (8003-1891) /uL Lymph # (Auto) 1200 (7900-5290) /uL [place] # (Auto) 600 (0-900) /uL Eos # (Auto) 200 (0-450) /uL Baso # (Auto) 100 (0-100) /uL RBC Morphology See below Anisocytosis 3+ H Microcytosis 2+ H Ovalocytes 1+ H Schistocytes 1+ H PT 13.8 H (9.4-12.5) SECONDS INR 1.2 (0.9-1.3) APTT 27 (25.1-36.5) SECONDS Sodium 134 L (137-145) mmol/L Potassium 4.7 (3.4-5.1) mmol/L Chloride 104 (98-107) mmol/L Carbon Dioxide 22 (22-32) mmol/L BUN 36 H (9-20) mg/dL Creatinine 2.64 H (0.66-1.25) mg/dL Estimated GFR 25 L (>60) mL/min BUN/Creatinine Ratio 13.6 (6-22) Glucose 94 (80-110) mg/dL Calcium 9.1 (8.4-10.2) mg/dL Total Bilirubin 0.3 (0.2-1.3) mg/dL AST 13 L (17-59) IU/L ALT 8 (<50) IU/L Alkaline Phosphatase 69 (38-126) U/L Total Protein 7.6 (6.3-8.2) g/dL Albumin 3.8 (3.5-5.0) g/dL Globulin 3.8 (1.7-4.1) g/dL Albumin/Globulin Ratio 1.0 (1.0-2.8) Urine Color Red Urine Appearance Turbid Urine pH 6.5 (4.5-8.0) Ur Specific [place] 1.020 (1.000-1.035) Urine Protein 3+ H (Negative) Urine Glucose (UA) Negative (Negative) g/dL Urine Ketones Negative (NEGATIVE) Urine Occult Blood 3+ H (Negative) Urine Nitrate Positive H (Negative) Urine Bilirubin Negative (NEGATIVE) Urine Urobilinogen 1.0 (0.2) E.U./dL Ur Leukocyte Esterase 2+ H (NEGATIVE) Urine RBC >100/hpf H (0-5/HPF) Urine WBC 30-100/hpf H (0-5/HPF) Ur Squamous Epith Cells 1-5 /hpf (0-5/HPF) Urine Bacteria Moderate (10-30) H (None) Ur Culture Indicated? Specimen cultured Micro UA Comment Ur Random Sodium 69 (30-90) mmol/L Urine Creatinine 68.7 mg/dL SARS-CoV-2 (PCR) (Negative) Blood Type A Positive Antibody Screen Negative Crossmatch See Detail 10/01/23 10/01/23 10/02/23 Range/Units 22:03 23:45 02:40 WBC (4.5-11.0) X10^3/uL RBC (4.5-5.9) X10^6/uL Hgb 6.7 L* 7.9 L (13.5-17.5) g/dL Hct 21.1 L 24.7 L (41-53) % MCV (80-100) fL MCH (26-34) PG MCHC (30-36) % RDW (11.6-14.8) % Plt Count (150-400) X10^3/uL Neut % (Auto) (50-75) % Lymph % (Auto) (25-40) % [place] % (Auto) (3-14) % Eos % (Auto) (2-4) % Baso % (Auto) (0-2) % Neut # (Auto) (6660-8520) /uL Lymph # (Auto) (0273-7776) /uL [place] # (Auto) (0-900) /uL Eos # (Auto) (0-450) /uL Baso # (Auto) (0-100) /uL RBC Morphology Anisocytosis Microcytosis Ovalocytes Schistocytes PT (9.4-12.5) SECONDS INR (0.9-1.3) APTT (25.1-36.5) SECONDS Sodium (137-145) mmol/L Potassium (3.4-5.1) mmol/L Chloride (98-107) mmol/L Carbon Dioxide (22-32) mmol/L BUN (9-20) mg/dL Creatinine (0.66-1.25) mg/dL Estimated GFR (>60) mL/min BUN/Creatinine Ratio (6-22) Glucose (80-110) mg/dL Calcium (8.4-10.2) mg/dL Total Bilirubin (0.2-1.3) mg/dL AST (17-59) IU/L ALT (<50) IU/L Alkaline Phosphatase (38-126) U/L Total Protein (6.3-8.2) g/dL Albumin (3.5-5.0) g/dL Globulin (1.7-4.1) g/dL Albumin/Globulin Ratio (1.0-2.8) Urine Color Urine Appearance Urine pH (4.5-8.0) Ur Specific [place] (1.000-1.035) Urine Protein (Negative) Urine Glucose (UA) (Negative) g/dL Urine Ketones (NEGATIVE) Urine Occult Blood (Negative) Urine Nitrate (Negative) Urine Bilirubin (NEGATIVE) Urine Urobilinogen (0.2) E.U./dL Ur Leukocyte Esterase (NEGATIVE) Urine RBC (0-5/HPF) Urine WBC (0-5/HPF) Ur Squamous Epith Cells (0-5/HPF) Urine Bacteria (None) Ur Culture Indicated? Micro UA Comment Ur Random Sodium (30-90) mmol/L Urine Creatinine mg/dL SARS-CoV-2 (PCR) Negative (Negative) Blood Type Antibody Screen Crossmatch 10/02/23 Range/Units 06:45 WBC (4.5-11.0) X10^3/uL RBC (4.5-5.9) X10^6/uL Hgb 7.7 L (13.5-17.5) g/dL Hct 23.8 L (41-53) % MCV (80-100) fL MCH (26-34) PG MCHC (30-36) % RDW (11.6-14.8) % Plt Count (150-400) X10^3/uL Neut % (Auto) (50-75) % Lymph % (Auto) (25-40) % [place] % (Auto) (3-14) % Eos % (Auto) (2-4) % Baso % (Auto) (0-2) % Neut # (Auto) (1635-9560) /uL Lymph # (Auto) (8656-1836) /uL [place] # (Auto) (0-900) /uL Eos # (Auto) (0-450) /uL Baso # (Auto) (0-100) /uL RBC Morphology Anisocytosis Microcytosis Ovalocytes Schistocytes PT (9.4-12.5) SECONDS INR (0.9-1.3) APTT (25.1-36.5) SECONDS Sodium (137-145) mmol/L Potassium (3.4-5.1) mmol/L Chloride (98-107) mmol/L Carbon Dioxide (22-32) mmol/L BUN (9-20) mg/dL Creatinine (0.66-1.25) mg/dL Estimated GFR (>60) mL/min BUN/Creatinine Ratio (6-22) Glucose (80-110) mg/dL Calcium (8.4-10.2) mg/dL Total Bilirubin (0.2-1.3) mg/dL AST (17-59) IU/L ALT (<50) IU/L Alkaline Phosphatase (38-126) U/L Total Protein (6.3-8.2) g/dL Albumin (3.5-5.0) g/dL Globulin (1.7-4.1) g/dL Albumin/Globulin Ratio (1.0-2.8) Urine Color Urine Appearance Urine pH (4.5-8.0) Ur Specific [place] (1.000-1.035) Urine Protein (Negative) Urine Glucose (UA) (Negative) g/dL Urine Ketones (NEGATIVE) Urine Occult Blood (Negative) Urine Nitrate (Negative) Urine Bilirubin (NEGATIVE) Urine Urobilinogen (0.2) E.U./dL Ur Leukocyte Esterase (NEGATIVE) Urine RBC (0-5/HPF) Urine WBC (0-5/HPF) Ur Squamous Epith Cells (0-5/HPF) Urine Bacteria (None) Ur Culture Indicated? Micro UA Comment Ur Random Sodium (30-90) mmol/L Urine Creatinine mg/dL SARS-CoV-2 (PCR) (Negative) Blood Type Antibody Screen Crossmatch [facility] Narrative Medical decision making narrative: Patient has had persistent hematuria for the past several months. He is a known bladder mass. Has been seen by Urology the [facility]. Has decided not to pursue surgical intervention because he wanted to explore other opportunities to try to shrink the mass before any surgery. Hematuria worsened over the past week or so. Has not been tachycardic nor hypotensive however was pale. Was significantly anemic. Source of bleeding was from the urine. He is emptying his bladder when he urinates. Also has acute kidney injury. FENa is 2% which is indicative of a intrinsic renal pathology. Discuss the risks and benefits of a blood transfusion and the patient consented. Had good response to 2 units so a 3rd unit was administered. Patient has no signs of fluid overload. I did discuss the case with Dr. Thomas urologist on-call at our facility who evaluated the patient earlier this year. Dr. Thomas states that there is minimal that we can offer him here at this facility and that he would need transferred to larger facility that has a multidisciplinary approach to his most likely diagnosis of bladder cancer. Had a long discussion with the patient regarding his goals of care. Patient states that he is open for a transfer to discuss treatment options. Discuss the case with urology at the [facility] who accepts the patient for transfer. Unfortunately no bed availability overnight. Patient is aware this. We will continue to monitor until disposition can be met. Care turned over to Dr. Posey to continue to observe until disposition can be met. 9am care is assumed, chart is reviewed patient is independently examined. Phone call to [facility] who has, theoretically, accepted the patient. This morning they are telling us it will be a number of days before the patient may actually have a bed. Findings reviewed with the patient. He continues to have gross hematuria. After 3 units of blood H&H was as high as 7.9/24.7 and over a 4 hour. (no fluids or other IV medications given) drifted down to 7.7/23.8. Patient states that he does have an appointment with a urologist at [facility] in November for a cystoscopy. Given the extended wait to get the [facility] will called in to [facility] and see if they may be a will and willing to take this patient in transfer. Patient is amenable to that With the mild hydronephrosis, a postvoid residual was done. Less than 10 cc were appreciated. 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 He still remains under the impression that his hematuria is secondary to urinary tract infection despite 2 courses of antibiotics. Urine micro culture from September 04 shows 3 or more colony types of mixed gus suggesting an absence of urinary tract infection 1150am [facility] does not have beds available for a number of days. Discussion with [facility], trying to get hold of Urology regarding recommendations if the wait for a bed is going to be a number of days. Patient has been updated 1204 transfer oaklyn MD [place] Urologic oncologist. Her recommendation is to place a large, 24 Eritrean of possible three-way Arizmendi catheter with manual irrigation for at least 500 cc and then continuous bladder irrigation to see if we can get bleeding too slow. We will work on getting him moved up the list for admission with anticipation that he will go to the [facility]. We will keep him in the emergency department until he is able to be transferred. Will discuss consultation with hospitalist service. Dr Javier, will consult in the ED as we await bed availability at the [facility] [address] Dr[address] Woodruff, urology in the ED to offer assistance. Agrees with transfers urgently is were able to arrange. He was able to assist with obtaining Twenty- four Eritrean hematuria catheter [address] to begin 500 cc of sterile water irrigation to try to break up any clots that may be present. Followed with sterile saline continuous infusion. 200pm [facility] has made arrangements for a bed. [facility] transport is being arranged 225pm Dr. Douglas, urology attempted Arizmendi catheter placement after nursing staff was unsuccessful. He was unable to place the catheter. His concern was tumor within the prostate. Transport is currently available. Patient is able to void and he will be transferred without catheter in place. Discharge Plan Departure Patient Disposition: [facility] Clinical Impression: Bladder mass Hematuria Qualifiers: Hematuria type: gross Qualified Code(s): R31.0 - Gross hematuria Anemia Qualifiers: Anemia type: unspecified type Qualified Code(s): D64.9 - Anemia, unspecified Acute kidney failure Qualifiers: Acute renal failure type: unspecified Qualified Code(s): N17.9 - Acute kidney failure, unspecified Prescriptions: No Action nitrofurantoin macrocrystal 100 mg capsule 100 mg PO BID 7 Days Qty: 14 0RF Rx Instructions: must administer with a meal/food tamsulosin 0.4 mg capsule 0.4 mg PO BEDTIME Qty: 90 3RF Referrals: Mague Priest MD [Primary Care Provider] -
--- NOTE | 2023-10-01 18:47 | DI.CT.S_ITS ---
PROCEDURE: CT ABDOMEN PELVIS WO CON INDICATIONS: Hematuria, known bladder mass, TECHNIQUE: Noncontrast 5 mm thick sections acquired from the diaphragms to the symphysis. 5 mm coronal and sagittal reformats were then performed. For radiation dose reduction, the following was used: automated exposure control, adjustment of mA and/or kV according to patient size. COMPARISON: [facility], CT, CT ABDOMEN PELVIS W CON, 01/23/2023, 13:58. FINDINGS: Image quality: Diagnostic ABDOMEN: Lung bases: Lung bases are clear. Heart size is normal. Solid organs: Liver: Liver is normal in size. Gallbladder: Unremarkable. Pancreas: Pancreas is normal in contours. Spleen: Spleen is normal in size. Adrenal Glands: Stable appearance of the adrenal glands. Kidneys/Ureters: Moderate bilateral hydronephrosis stable to slightly more prominent compared to the prior study. There is moderate right hydroureter. Tiny punctate left renal stone identified. Persistent left hydroureter. A few punctate densities noted in the distal left ureter likely representing ureteral stones. Peritoneum and bowel: Unenhanced bowel loops demonstrate normal wall thickness and caliber. No free fluid or air. No evidence for obstruction. Moderate fecal material seen in the ascending colon and transverse colon. Nodes and vessels: No retroperitoneal or mesenteric adenopathy by size criteria. Aorta and inferior vena cava are normal in caliber. Scattered atherosclerosis. Miscellaneous: No ventral hernias. PELVIS: Genitourinary: Redemonstration of large, heterogeneous urinary bladder mass with associated diffusely, irregular bladder wall thickening. Largest dimension measures approximately 9.5 cm in AP dimension. This is similar compared to the prior study accounting for differences in technique. Small punctate densities within the urinary bladder may represent small stones. No significant perivesicular stranding seen. Miscellaneous: No inguinal hernias or adenopathy. Bones: No suspicious bony lesions. No acute vertebral body compression fractures. Multilevel spondylosis. IMPRESSION: 1. Redemonstration of large, heterogeneous urinary bladder wall mass with associated diffusely irregular urinary bladder wall thickening. There is stable to slight interval worsening moderate bilateral hydronephrosis. 2. Tiny punctate left nephrolith with a few smaller punctate left ureteral stones. Suspected small urinary bladder stones. 3. Moderate amount of fecal material noted within the ascending colon and transverse colon. No evidence for small bowel obstruction. Dictated by: Stiven Cr M.D. on 10/01/2023 at 20:00 Approved by: Stiven Cr M.D. on 10/01/2023 at 20:11
[2023-10-01 19:40] LABS: Creatinine Urine Random 68.7 mg/dL; Sodium Urine Random 69 mmol/L (30-90)
[2023-10-01 23:03] LABS: COVID19 -Nasal RAPID Negative (Negative)
[2023-10-02] VITALS (72 sets, daily range): BP systolic 120–203; BP diastolic 56–108; PULSE 66–101; RESP 16–33; TEMP 36.6–36.9; O2SAT 94–100
[2023-10-02 00:01] LABS: Hematocrit 21.1 % (41-53)
[2023-10-02 00:03] LABS: Hemoglobin 6.7 g/dL (13.5-17.5)
--- NOTE | 2023-10-02 01:30 | PC.NURSE ---
Pt continues to have Red urine Denies any pain.
[2023-10-02 03:19] LABS: Hematocrit 24.7 % (41-53); Hemoglobin 7.9 g/dL (13.5-17.5)
[2023-10-02 07:01] LABS: Hematocrit 23.8 % (41-53); Hemoglobin 7.7 g/dL (13.5-17.5)
--- NOTE | 2023-10-02 07:59 | PC.NURSE ---
SENIOR ELECTRICAL DESIGNER Note - Patient accepted at by Dr. Brooks overnight. Called the transfer center for an update about bed status, talked with Rody; no bed information available. Told to call back in 30-45 minutes
--- NOTE | 2023-10-02 08:49 | PC.NURSE ---
KEYBOARD TEACHER Note - Called Transfer Center back, spoke with Rody again. was told no bed update available and no estimated time available for when a bed would be assigned.
--- NOTE | 2023-10-02 09:12 | PC.NURSE ---
pt emptied bladder, has known bladder mass getting readings of 137mL and 7mL. pt just emptied bladder and 7mL seems most appropriate. MD crane
--- NOTE | 2023-10-02 09:30 | PC.NURSE ---
FREIGHT TEAM ASSOCIATE Note - Called [facility] transfer center; talked with Arleen. Reported very little movement the past three days, multi-day wait list. Patient added to wait list.
[2023-10-02] MEDS: TAMSULOSIN 0.4 MG CAPSULE PO (13:19)
[2023-10-02] MEDS: TRANEXAMIC ACID 1,000 MG in SODIUM CHLORIDE 0.9% 100 ML 200 MG IV (13:19)
[2023-10-02] MEDS: LIDOCAINE 2% (GLYDO) 6 ML GEL TOP (13:19)
[2023-10-02] MEDS: cefTRIAXone 1,000 MG in SODIUM CHLORIDE 0.9% 100 ML 200 MG IV (13:24)
--- NOTE | 2023-10-02 14:15 | PC.NURSE ---
This RN with Dr. Woodruff at bedside placed a 24 Bulgarian hematuria catheter. the catheter would drain when the balloon was not inflated. the balloon required 30mls to inflate. Dr. Woodruff and this RN attempted to start the CBI while the balloon was inflated but the CBI bag of NS would not drain into the bladder. Dr. Woodruff attempted to manually irrigate with sterile water and the catheter would not drain. Dr. Woodruff deflated the balloon and the catheter would drain. Dr. Woodruff attempted to use a guide wire to re insert the catheter with no success. The patient was ablel to void on his own so Dr. Woodruff recommended for patient to be transferred without a catheter. patient tolerated well.
--- NOTE | 2023-10-02 14:41 | PM.CN ---
History of Present Illness Consult details Date Patient Seen: 10/02/23 Time Patient Seen: 14:41 Chief complaint: hematuria low H/H Reason for consult: Known bladder cancer hematuria low H&H requiring transfusion Requesting provider: Walter Javier Narrative: Was asked to see this 73 year old male with known bladder cancer who since February had had cystoprostatectomy and other therapies recommended by at least 3 different urologist 1 here wanted to [facility] and 1 at [facility]. The patient decided that he would go down other pass and was under the care of in nature a path to try ?shrink the tumor?. He I believe yesterday presented to his primary care provider with complaints of lightheadedness feeling pale and was found to be quite anemic. Patient had been having bleeding and presented here to the emergency department where was found to have an H&H of 4.9 and 16.3. He was transfused [address] Thomas who is on-call for Urology and seen the patient before was consulted and recommended as he had before that the patient needed urgent transfer to a ?higher level of care?. At this point he has been accepted by [facility] urologic oncology and is awaiting transfer. Was called because of the hematuria and to help manage with this. The oncologist at the [facility] had recommended a 34 Malian three-way catheter and an irrigation program and I was asked to assist with this. As it turned out during our interaction the delay in transfer apparently evaporated and the patient is now being transferred to the [facility]. The ambulance having arrived. The nursing staff had attempted to pass a 34 Malian hematuria catheter per recommendation and this seemed to go okay but did not irrigate appropriately. I then went in and it appeared that maybe it not been advanced and the balloon was deflated the catheter advanced again there was brisk efflux of bloody urine and a few small clots. However with the balloon inflated still would not irrigate. This was repeated a couple of times and as the ambulance arrived we were attempting to pass the catheter with the aid of a catheter guide. Patient was able to void and so given his transfer the attempts to pass his catheter were abandoned and he was sent without a catheter. Patient was able to void and did not want to delay the patient is transferred to get to the level of care that he desperately needs. CT scan that was done was reviewed and shows massive bilateral hydronephrosis his creatinine is increased to the 2.56 range has a large bladder tumor and will need multiple interventions to turn his course around. Meds Home Medications and Allergies Home Medications Medication Instructions Recorded Confirmed Type tamsulosin 0.4 mg capsule 0.4 mg PO BEDTIME #90 caps 03/12/23 10/01/23 Rx nitrofurantoin macrocrystal 100 mg 100 mg PO BID 7 days #14 caps 10/01/23 10/01/23 Rx capsule Allergies Allergy/AdvReac Type Severity Reaction Status Date / Time No Known Drug Allergies Allergy Verified 10/01/23 14:28 Review of Systems Review of Systems ROS: Yes All systems reviewed with the patient and are negative except as otherwise documented (And problem list) Exam Vital Signs (past 8 hours): - 10/02/23 06:45 10/02/23 07:00 10/02/23 07:15 Pulse Rate 72 75 71 Respiratory Rate 21 21 21 Blood Pressure Pulse Oximetry 97 100 98 10/02/23 07:30 10/02/23 07:45 10/02/23 08:00 Pulse Rate 86 76 78 Respiratory Rate 20 27 H 19 Blood Pressure Pulse Oximetry 98 94 97 10/02/23 08:00 10/02/23 08:15 10/02/23 08:30 Pulse Rate 71 85 Respiratory Rate 19 23 Blood Pressure 156/72 H Pulse Oximetry 96 10/02/23 08:45 10/02/23 09:00 10/02/23 09:15 Pulse Rate 85 80 89 Respiratory Rate 22 19 21 Blood Pressure Pulse Oximetry 96 98 10/02/23 09:30 10/02/23 09:45 10/02/23 10:00 Pulse Rate 79 81 77 Respiratory Rate 21 16 21 Blood Pressure Pulse Oximetry 97 98 97 10/02/23 10:01 10/02/23 10:01 10/02/23 10:15 Pulse Rate 77 73 Respiratory Rate 25 H 21 Blood Pressure 129/70 Pulse Oximetry 97 97 10/02/23 10:35 10/02/23 10:45 10/02/23 11:00 Pulse Rate 86 70 68 Respiratory Rate 20 21 22 Blood Pressure Pulse Oximetry 96 96 97 10/02/23 11:15 10/02/23 11:30 10/02/23 11:45 Pulse Rate 67 66 67 Respiratory Rate 20 20 22 Blood Pressure Pulse Oximetry 96 97 97 10/02/23 12:00 10/02/23 12:00 10/02/23 12:15 Pulse Rate 74 66 Respiratory Rate 18 22 Blood Pressure 137/82 Pulse Oximetry 98 10/02/23 12:30 10/02/23 12:45 10/02/23 13:00 Pulse Rate 67 66 77 Respiratory Rate 19 18 23 Blood Pressure Pulse Oximetry 97 97 96 10/02/23 13:15 10/02/23 13:30 10/02/23 13:45 Pulse Rate 75 75 82 Respiratory Rate 22 17 19 Blood Pressure Pulse Oximetry 97 97 98 10/02/23 14:00 10/02/23 14:01 10/02/23 14:01 Pulse Rate 98 H 101 H Respiratory Rate 24 18 Blood Pressure 203/102 H Pulse Oximetry 99 100 10/02/23 14:15 10/02/23 14:29 10/02/23 14:30 Pulse Rate 84 94 H Respiratory Rate 22 23 Blood Pressure 164/103 H Pulse Oximetry 97 Oxygen Delivery Method Room Air Narrative Exam Narrative: General: This is an awake, alert, oriented, pale thin male appearing in minimal distress. Lungs: Coarse breath sounds Cardiovascular exam: Appearing to have a regular rate and rhythm today Abdominal exam: Soft, tender in the bladder area no distinctly palpable masses noted. Genitourinary exam: Circumcised male, normal meatus, normal penis, normal scrotum, normal testes, normal epididymis and cord structures. Neurologic exam: Grossly intact Objective Labs 10/02/23 06:45 10/01/23 17:30 Labs: Laboratory Results - last 24 hr 10/01/23 10/01/23 10/01/23 17:30 17:40 19:23 WBC 7.5 RBC 2.52 L Hgb 4.9 L* Hct 16.3 L* MCV 64.9 L MCH 19.4 L MCHC 29.9 L RDW 24.6 H Plt Count 556 H Neut % (Auto) 72.3 Lymph % (Auto) 15.9 L [place] % (Auto) 8.2 Eos % (Auto) 2.9 Baso % (Auto) 0.7 Neut # (Auto) 5400 Lymph # (Auto) 1200 [place] # (Auto) 600 Eos # (Auto) 200 Baso # (Auto) 100 RBC Morphology See below Anisocytosis 3+ H Microcytosis 2+ H Ovalocytes 1+ H Schistocytes 1+ H PT 13.8 H INR 1.2 APTT 27 Sodium 134 L Potassium 4.7 Chloride 104 Carbon Dioxide 22 BUN 36 H Creatinine 2.64 H Estimated GFR 25 L BUN/Creatinine Ratio 13.6 Glucose 94 Calcium 9.1 Total Bilirubin 0.3 AST 13 L ALT 8 Alkaline Phosphatase 69 Total Protein 7.6 Albumin 3.8 Globulin 3.8 Albumin/Globulin Ratio 1.0 Urine Color Red Urine Appearance Turbid Urine pH 6.5 Ur Specific [place] 1.020 Urine Protein 3+ H Urine Glucose (UA) Negative Urine Ketones Negative Urine Occult Blood 3+ H Urine Nitrate Positive H Urine Bilirubin Negative Urine Urobilinogen 1.0 Ur Leukocyte Esterase 2+ H Urine RBC >100/hpf H Urine WBC 30-100/hpf H Ur Squamous Epith Cells 1-5 /hpf Urine Bacteria Moderate (10-30) H Ur Culture Indicated? Specimen cultured Micro UA Comment Ur Random Sodium 69 Urine Creatinine 68.7 SARS-CoV-2 (PCR) Blood Type A Positive Antibody Screen Negative Crossmatch See Detail 10/01/23 10/01/23 10/02/23 22:03 23:45 02:40 WBC RBC Hgb 6.7 L* 7.9 L Hct 21.1 L 24.7 L MCV MCH MCHC RDW Plt Count Neut % (Auto) Lymph % (Auto) [place] % (Auto) Eos % (Auto) Baso % (Auto) Neut # (Auto) Lymph # (Auto) [place] # (Auto) Eos # (Auto) Baso # (Auto) RBC Morphology Anisocytosis Microcytosis Ovalocytes Schistocytes PT INR APTT Sodium Potassium Chloride Carbon Dioxide BUN Creatinine Estimated GFR BUN/Creatinine Ratio Glucose Calcium Total Bilirubin AST ALT Alkaline Phosphatase Total Protein Albumin Globulin Albumin/Globulin Ratio Urine Color Urine Appearance Urine pH Ur Specific [place] Urine Protein Urine Glucose (UA) Urine Ketones Urine Occult Blood Urine Nitrate Urine Bilirubin Urine Urobilinogen Ur Leukocyte Esterase Urine RBC Urine WBC Ur Squamous Epith Cells Urine Bacteria Ur Culture Indicated? Micro UA Comment Ur Random Sodium Urine Creatinine SARS-CoV-2 (PCR) Negative Blood Type Antibody Screen Crossmatch 10/02/23 06:45 WBC RBC Hgb 7.7 L Hct 23.8 L MCV MCH MCHC RDW Plt Count Neut % (Auto) Lymph % (Auto) [place] % (Auto) Eos % (Auto) Baso % (Auto) Neut # (Auto) Lymph # (Auto) [place] # (Auto) Eos # (Auto) Baso # (Auto) RBC Morphology Anisocytosis Microcytosis Ovalocytes Schistocytes PT INR APTT Sodium Potassium Chloride Carbon Dioxide BUN Creatinine Estimated GFR BUN/Creatinine Ratio Glucose Calcium Total Bilirubin AST ALT Alkaline Phosphatase Total Protein Albumin Globulin Albumin/Globulin Ratio Urine Color Urine Appearance Urine pH Ur Specific [place] Urine Protein Urine Glucose (UA) Urine Ketones Urine Occult Blood Urine Nitrate Urine Bilirubin Urine Urobilinogen Ur Leukocyte Esterase Urine RBC Urine WBC Ur Squamous Epith Cells Urine Bacteria Ur Culture Indicated? Micro UA Comment Ur Random Sodium Urine Creatinine SARS-CoV-2 (PCR) Blood Type Antibody Screen Crossmatch [facility] Medical History (Updated 10/02/23 @ 14:53 by Jerome Woodruff MD) Transfusion of blood during current hospitalisation Benign prostatic hyperplasia Bilateral hydronephrosis Gross hematuria History of UTI Lower urinary tract symptoms (LUTS) Bladder neoplasm Plantar warts Shoulder pain Measles Chicken pox Surgical History Anesthesia History of tonsillectomy Family History Father Cancer Diabetes mellitus Mother Cancer Hypertension Social History marital status: Tobacco & Substance Use Smoking Status: Former smoker Diet and Exercise Type(s) of exercise: other frequency: 1-2 times per week Assessment & Plan Assessment and plan (1) Bladder neoplasm: Status: Acute (2) Gross hematuria: Status: Acute (3) Bilateral hydronephrosis: Status: Acute (4) Benign prostatic hyperplasia: Qualifiers: Lower urinary tract symptom presence: symptoms present Lower urinary tract symptom detail: urinary hesitancy Qualified Code(s): N40.1 - Benign prostatic hyperplasia with lower urinary tract symptoms; R39.11 - Hesitancy of micturition Status: Acute (5) Anemia: Qualifiers: Anemia type: unspecified type Qualified Code(s): D64.9 - Anemia, unspecified Status: Acute (6) Acute kidney failure: Qualifiers: Acute renal failure type: unspecified Qualified Code(s): N17.9 - Acute kidney failure, unspecified Status: Acute (7) Transfusion of blood during current hospitalisation: Status: Acute Plan Assessment and plan: 1. Bladder cancer likely advanced with new hydronephrosis and renal insufficiency and rising creatinine. Patient with active bleeding and currently being transferred to the [facility]. Had attempted to pass a 34 Malian hematuria catheter however however even though the catheter seemed to pass easily it did not irrigate appropriately this was attempted on multiple occasions and included the use of a catheter guide. Was not able to satisfactory pass a catheter the patient continued to void and so he was left without a cancer there for transfer he will likely need scoping to ascertain his lower urinary tract anatomy and aid in the passage of the catheter. Completely agree with the transfer as he will need to deal with his situation therapies which are not available here which will likely include potential embolization of his bleeding as well as bilateral nephrostomy tubes and potentially cystoprostatectomy and or other interventions and may need again other resources which will be readily available at the [facility]. Assessment & Plan narrative: Assessment and plan as noted above. Time Spent With Patient Time with patient: 50 to 69 minutes with 50% spent counseling/coordinating care
== END 2023-10-02 14:38 | disposition short-term general hospital (02) ==
PROVIDERS: Emergency Medicine; Emergency Provider Emergency Medicine; PCP Family Medicine
DX: R31.0 Gross hematuria (principal); D64.9 Anemia, unspecified; N17.9 Acute kidney failure, unspecified; R31.9 Hematuria, unspecified; R03.0 Elevated blood-pressure reading, without diagnosis of hypertension
CPT/HCPCS: 36415; 36430; 51798; 74176; 80053; 81001; 81002; 82570; 84300; 85014; 85018; 85025; 85610; 85730; 86850; 86900; 86901; 87077; 87086; 87147; 87186; 87635; 93005; 93010; 96365; 96368; 99283; 99285; C9803; P9016; J0696

== ENCOUNTER → 2023-11-04 14:22 | Outpatient (CLI) | payer MEDICARE, SELFPAY ==
[2023-11-04 19:24] LABS: Alanine Aminotransferase 9 IU/L (<50); Albumin 3.9 g/dL (3.5-5.0); Albumin Globulin Ratio 1.1 (1.0-2.8); Alkaline Phosphatase 65 U/L (38-126); Aspartate Aminotransferase 16 IU/L (17-59); BUN Creatinine Ratio 21.9 (6-22); Bilirubin Total 0.4 mg/dL (0.2-1.3); Blood Urea Nitrogen 37 mg/dL (9-20); Calcium 9.2 mg/dL (8.4-10.2); Carbon Dioxide 26 mmol/L (22-32); Chloride 103 mmol/L (98-107); Estimated Glomerular Filt Rate 43 mL/min (>60); Globulin 3.5 g/dL (1.7-4.1); Glucose 88 mg/dL (80-110); HEMOLYSIS < 15 (0-50); Potassium 4.8 mmol/L (3.4-5.1); Sodium 136 mmol/L (137-145); Total Protein 7.4 g/dL (6.3-8.2)
== END ==
PROVIDERS: PCP Family Medicine; Visit Provider Family Medicine
DX: D49.4 Neoplasm of unspecified behavior of bladder (principal)
CPT/HCPCS: 80053